=== PATIENT | male | born 1945 | race Hispanic/Latino ===

== ENCOUNTER 2022-02-07 08:23 | Day surgery (SDC) | payer MEDICARE ==
[2022-02-05 11:17] VITALS: BP 138/69
[2022-02-05 15:33] LABS: BASOPHILS % (AUTO) 0.4 % (0.0-5.0); EOSINOPHILS % (AUTO) 1.4 % (0.0-8.0); HEMATOCRIT 46.9 % (42-54); MEAN CORPUSCULAR HEMOGLOBIN 29.3 pg (27.0-33.0); MEAN CORPUSCULAR HGB CONC 31.8 g/dL (32.0-36.0); MEAN CORPUSCULAR VOLUME 92.3 fL (79-99); MONOCYTES % (AUTO) 9.5 % (3.0-13.0); NEUTROPHILS % (AUTO) 67.3 % (40.0-77.0); PLATELET COUNT (AUTO) 178 K/uL (130-400); RED BLOOD CELL COUNT(AUTO) 5.08 MIL/uL (4.50-6.20); RED CELL DISTRIBUTION WIDTH 15.2 % (11.0-15.5); WHITE BLOOD COUNT (AUTO) 9.9 K/uL (4.8-10.8)
[2022-02-05 15:48] LABS: CREATININE 1.4 mg/dL (0.5-1.5); INR 0.99 (0.85-1.15); POTASSIUM 4.4 mmol/L (3.5-5.1); PROTHROMBIN TIME 10.8 SEC (9.6-11.6)
[2022-02-05 15:49] LABS: PARTIAL THROMBOPLASTIN TIME 25.9 SEC (26.3-35.5)
[~2022-02-07] VITALS: Ht 172.7 cm; Wt 107.5 kg
[2022-02-07] VITALS (10 sets, daily range): BP systolic 138–154; BP diastolic 56–68
[~2022-02-07 08:23] MED LIST: APIX5TAB PO; ATOR40TA71 PO; CEFAZOLIN SODIUM 1 GM VIAL IVP SCH; EMPA1TAB21 PO; LOSA100T58 PO; NIFE-40 PO; PANT40TA54 PO; SITA100T12 PO; TAMS-1 PO; TRAZ-187 PO; VIBE75TA PO
[2022-02-07] MEDS ORDERED: 0.9%NACL 1000ML 1,000 ML IV ONE (09:38)
[2022-02-07] MEDS ORDERED: ONDANSETRON 4MG INJ ONE (11:09)
[2022-02-07] MEDS ORDERED: MEPERIDINE-PF 25 MG/ML SYG ONE ×4 (11:15→13:11)
[2022-02-07] MEDS ORDERED: LIDOCAINE HCL 1% 20 ML VIAL ONE (11:15)
[2022-02-07] MEDS ORDERED: BUPIVACAINE/PF 0.25% 30ML VIAL IJ ONE (11:15)
[2022-02-07] MEDS ORDERED: IOHEXOL-350 50ML VIAL IV ONE (11:15)
[2022-02-07] MEDS ORDERED: MIDAZOLAM HCL 1 MG/ML 2ML VIAL ONE ×3 (11:16→11:54)
[2022-02-07] MEDS ORDERED: LIDOCAINE HCL 1% 10 ML VIAL ONE (11:16)
[2022-02-07] MEDS ORDERED: TRAM50TA4 PO (13:57)
[2022-02-07] MEDS ORDERED: ACETAMINOPHEN WITH CODEINE 1 TAB TAB PO PRN (14:00)
== END 2022-02-07 17:45 | disposition home or self-care (01) ==
LOC: DAH 08:23
PROVIDERS: ATTEND Internal Medicine Cardiovascular Disease
DX: I48.21 Permanent atrial fibrillation (principal); I49.5 Sick sinus syndrome; I44.30 Unspecified atrioventricular block; E78.5 Hyperlipidemia, unspecified; G47.33 Obstructive sleep apnea (adult) (pediatric); E11.22 Type 2 diabetes mellitus with diabetic chronic kidney disease; I12.9 Hypertensive chronic kidney disease with stage 1 through stage 4 chronic kidney disease, or unspecified chronic kidney disease; N18.9 Chronic kidney disease, unspecified; Z79.899 Other long term (current) drug therapy; Z79.01 Long term (current) use of anticoagulants; Z79.84 Long term (current) use of oral hypoglycemic drugs; Z79.82 Long term (current) use of aspirin; Z98.890 Other specified postprocedural states
CPT/HCPCS: 80048; 85025; 85610; 85730; 36415; 93005; 33207; 82948 ×2; 71045; C1786; C1898; J0690; J7030; J3490 ×2; J2250 ×3; J2405; J2175 ×4; Q9967; A4215; A4222; A4221; A4663; A4216; A4606; A4223 ×3; 99156; 99157